=== PATIENT | female | born 1995 | race African-American/Black ===

== ENCOUNTER 2016-03-26 20:12 | Emergency (ER) | payer OTHER ==
[2016-03-26 20:20] VITALS: BP 130/76
[2016-03-26] MEDS ORDERED: Ondansetron INJ* 2 MG/ML VIAL IV ONE (20:42)
[2016-03-26] MEDS ORDERED: NS 0.9% 1000 ML* 1,000 ML IV ONE (20:42)
[2016-03-26 21:03] LABS: Urine Bilirubin Negative (Negative); Urine Glucose Negative (Negative); Urine Nitrite Negative (Negative)
[2016-03-26 21:14] LABS: Hematocrit 38 % (35-47); Hemoglobin 12.9 g/dl (12.0-16.0); Mean Corpuscular HGB Conc 34 g/dl (31-36); Mean Corpuscular Hemoglobin 30 pg (27-31); Mean Corpuscular Volume 89 fL (80-97); Mean Platelet Volume 7 um3 (7.4-10.4); Red Blood Count 4.27 10^6/ul (4.0-5.4); Red Cell Distribution Width 12 % (10.5-15); White Blood Count 10.3 10^3/ul (3.5-10.8)
[2016-03-26 21:37] LABS: ALT 20 U/L (7-52); AST 16 U/L (13-39); Albumin 4.1 g/dL (3.2-5.2); Alkaline Phosphatase 80 U/L (34-104); Anion Gap 5 mmol/L (2-11); BUN/Creatinine Ratio 15.1 (8-20); Blood Urea Nitrogen 13 mg/dL (6-24); CO2 Carbon Dioxide 27 mmol/L (22-32); Calcium 9.4 mg/dL (8.6-10.3); Chloride 104 mmol/L (101-111); EGFR African American 109.3 (>60); Globulin 2.8 g/dL (2-4); Glucose 104 mg/dL (70-100); Lipase 13 U/L (11.0-82.0); Potassium 3.8 mmol/L (3.5-5.0); Sodium 136 mmol/L (133-145); Total Protein 6.9 g/dL (6.4-8.9)
[2016-03-26] MEDS ORDERED: Iohexol 300* (CONTRAST) 10 ML SDV IV ONE (21:43)
--- NOTE | 2016-03-26 22:32 | ED ---
Abdominal Pain/Female - HPI Summary HPI Summary: 20 F w/ no PMH presents with increased pain in inguinal area today. She was seen yesterday and diagnosed with a hernia. She noticed a bulge in her inguinal area three days ago. She states she has a small BM today. She admits to nausea and vomited once. She denies any fevers. She denies any vaginal discharge, dysuria, or hematuria. She states her appetite has decreased due to nausea. She states she avoided lifting items >5lb today. She took a ibuprofen for her pain this morning. - History of Current Complaint Chief Complaint: EDAbdPain Stated Complaint: ABD PAIN,NAUSEA,WEAKNESS Time Seen by Provider: 03/26/16 20:42 Hx Last Menstrual Period: 05/04/15 Pain Intensity: 10 Allergies/Adverse Reactions: Allergies Allergy/AdvReac Type Severity Reaction Status Date / Time No Known Allergies Allergy Verified 03/25/16 18:32 PMH/Surg Hx/FS Hx/Imm Hx Endocrine/Hematology History: Denies: Hx Diabetes, Hx Thyroid Disease Cardiovascular History: Denies: Hx Hypertension Respiratory History: Denies: Hx Asthma, Hx Chronic Obstructive Pulmonary Disease (COPD) GI History: Denies: Hx Ulcer History: Denies: Hx Dialysis, Hx Renal Disease - Immunization History Date of Tetanus Vaccine: UTD Date of Influenza Vaccine: NONE Infectious Disease History: No Infectious Disease History: Denies: Hx Clostridium Difficile, Hx Hepatitis, Hx Human Immunodeficiency Virus (HIV), Hx of Known/Suspected MRSA, Hx Shingles, Hx Tuberculosis, Hx Known/ Suspected VRE, Hx Known/Suspected VRSA, History Other Infectious Disease, Traveled Outside the [place] in Last 30 Days - Family History Known Family History: Positive: Hypertension, Diabetes Family History: NON CONTRIBUTORY - Social History Alcohol Use: None Substance Use Type: Reports: None Smoking Status (MU): Heavy Every Day Tobacco Smoker Amount Used/How Often: 1/2 PPD Review of Systems Negative: Fever Negative: Chest Pain Negative: Shortness Of Breath Positive: Abdominal Pain - left inguinal area, Vomiting, Nausea. Negative: Diarrhea Negative: dysuria, frequency All Other Systems Reviewed And Are Negative: Yes Physical Exam Triage Information Reviewed: Yes Vital Signs On Initial Exam: Initial Vitals Temp Pulse Resp BP Pulse Ox 97.7 F 102 18 130/76 100 03/26/16 20:17 03/26/16 20:17 03/26/16 20:17 03/26/16 20:17 03/26/16 20:17 Vital Signs Reviewed: Yes Appearance: Positive: Well-Appearing Skin: Positive: Warm, Dry Head/Face: Positive: Normal Head/Face Inspection Eyes: Positive: Normal, Conjunctiva Clear ENT: Positive: Normal ENT inspection, Pharynx normal, TMs normal Respiratory/Lung Sounds: Positive: Clear to Auscultation, Breath Sounds Present Cardiovascular: Positive: Normal, RRR Abdomen Description: Positive: Soft, Other: - no hernia felt when patient laying flat, mild diffuse abdominal tenderness, Bowel Sounds: Positive: Present - [place] Coma Scale Coma Scale Total: 15 Diagnostics - Vital Signs Vital Signs Temp Pulse Resp BP Pulse Ox 03/26/16 20:17 97.7 F 102 18 130/76 100 - Laboratory Lab Results: Lab Results 03/26/16 03/26/16 03/26/16 Range/Units 20:55 21:00 21:00 WBC 10.3 (3.5-10.8) 10^3/ul RBC 4.27 (4.0-5.4) 10^6/ul Hgb 12.9 (12.0-16.0) g/dl Hct 38 (35-47) % MCV 89 (80-97) fL MCH 30 (27-31) pg MCHC 34 (31-36) g/dl RDW 12 (10.5-15) % Plt Count 327 (150-450) 10^3/ul MPV 7 L (7.4-10.4) um3 Neut % (Auto) 70.6 (38-83) % Lymph % (Auto) 22.5 L (25-47) % [place] % (Auto) 4.5 (1-9) % Eos % (Auto) 2.1 (0-6) % Baso % (Auto) 0.3 (0-2) % Absolute Neuts (auto) 7.2 (1.5-7.7) 10^3/ul Absolute Lymphs (auto) 2.3 (1.0-4.8) 10^3/ul Absolute Monos (auto) 0.5 (0-0.8) 10^3/ul Absolute Eos (auto) 0.2 (0-0.6) 10^3/ul Absolute Basos (auto) 0 (0-0.2) 10^3/ul Absolute Nucleated RBC 0 10^3/ul Nucleated RBC % 0 Sodium 136 (133-145) mmol/L Potassium 3.8 (3.5-5.0) mmol/L Chloride 104 (101-111) mmol/L Carbon Dioxide 27 (22-32) mmol/L Anion Gap 5 (2-11) mmol/L BUN 13 (6-24) mg/dL Creatinine 0.86 (0.51-0.95) mg/dL Est GFR ( Amer) 109.3 (>60) Est GFR (Non-Af Amer) 85.0 (>60) BUN/Creatinine Ratio 15.1 (8-20) Glucose 104 H (70-100) mg/dL Calcium 9.4 (8.6-10.3) mg/dL Total Bilirubin 0.20 (0.2-1.0) mg/dL AST 16 (13-39) U/L ALT 20 (7-52) U/L Alkaline Phosphatase 80 (34-104) U/L C-React Prot High Sens 10.28 mg/L Total Protein 6.9 (6.4-8.9) g/dL Albumin 4.1 (3.2-5.2) g/dL Globulin 2.8 (2-4) g/dL Albumin/Globulin Ratio 1.5 (1-3) Lipase 13 (11.0-82.0) U/L Beta HCG, Quant < 0.60 mIU/mL Urine Color Yellow Urine Appearance Clear Urine pH 6.0 (5-9) Ur Specific [place] 1.019 (1.010-1.030) Urine Protein Negative (Negative) Urine Ketones Negative (Negative) Urine Blood Negative (Negative) Urine Nitrate Negative (Negative) Urine Bilirubin Negative (Negative) Urine Urobilinogen Negative (Negative) Ur Leukocyte Esterase Negative (Negative) Urine Glucose Negative (Negative) Result Diagrams: 03/26/16 21:00 03/26/16 21:00 Lab Statement: Any lab studies that have been ordered have been reviewed, and results considered in the medical decision making process. - CT abdomen CT Interpretation: No Acute Changes - no inguinal region hernia, normal appendix , 2.3 cm corpus luteum left ovary CT Interpretation Completed By: Radiologist Re-Evaluation - Re-Evaluation First Eval Re-Evaluation Time: 22:30 Change: Worse Comment: would like pain medication Second Eval Re-Evaluation Time: 23:40 Change: Improved Comment: pain improved Third Eval Re-Evaluation Time: 00:36 Comment: patient c/o of nausea, gave another dose of zofran Abdominal Pain Fem Course/Dx - Course Course Of Treatment: 20 F presents with increased inguinal pain and nausea since today. She was seen yesterday by me and diagnosed with a hernia as felt potential hernia in inguinal area and at the time had no signs of incarceration. on exam generalized abdominal pain, no rebound tenderness, increased pain over LLQ, no hernia noted while patient laying down, due to increase in pain and nausea will do CT to r/o incarceration, labs improved since yesterday, CT read as no inguinal hernia, 2/3 corpus luteum left ovary, discussed results with patient that I was incorrected and does not have hernia instead has ovarian cyst, due to pelvic exam being done yesterday by me and being normal will d/c home, enouraged pt to establish care with obgyn to potential have repeating imaging of cyst in couple months, will give nausea medication for home and have follow up with primary in couple days, patient agrees with plan - Diagnoses Differential Diagnosis: Positive: Bowel Obstruction, Pancreatitis, Other - hernia, incarcerated hernia, strangulated hernia Provider Diagnoses: Left ovarian cyst Discharge - Discharge Plan Condition: Good Disposition: HOME Prescriptions: Ondansetron TAB* [Zofran Tab*] 4 mg PO Q6H PRN #20 tab PRN Reason: Nausea Patient Education Materials: Ovarian Cyst (ED) Referrals: Sophia SOSA,Lynette [Primary Care Provider] - Additional Instructions: Take zofran as needed every 6 hours for nausea Take Tylenol or ibuprofen for pain every 6 hours Establish care with OBGYN Follow up with primary in 5 days if no improvement Return to ED if develop any new or worsening symptoms
[2016-03-26] MEDS ORDERED: Ketorolac INJ* 30 MG/ML 1 ML VIAL IV PUSH ONE (22:34)
[2016-03-27] MEDS ORDERED: Ondansetron INJ* 2 MG/ML VIAL IV ONE (00:32)
--- NOTE | 2016-03-27 10:40 | RAD ---
CLINICAL HISTORY: Abdominal pain in patient with a left groin hernia COMPARISON: None TECHNIQUE: Contrast enhanced CT examination of the abdomen and pelvis from the lung bases through the initial tuberosities. The patient received 136 mL Omnipaque 300 intravenously prior to imaging.The patient received oral contrast as well prior to imaging. FINDINGS: VISUALIZED LUNG BASES: The visualized lung bases are grossly clear. There is no pleural effusion. ABDOMEN AND PELVIS: The liver, spleen, pancreas and adrenal glands are grossly normal in appearance. The gallbladder is normal. The kidneys are normal in appearance without focal mass, calcification or signs of hydronephrosis. Neural contrast has progressed as far as the base of the cecum. The small and large bowel are not distended. The patient's normal appendix is identified in the right lower quadrant (coronal image 47). There is no gross retroperitoneal lymphadenopathy. Best depicted on the coronal plane images there are an numerable mesenteric lymph nodes some exhibiting pathologic enlargement up to 1.3 cm in short access diameter (coronal image 48 and 41 for example). The pelvic viscera is normal in appearance for a woman of this age. The abdominal aorta and iliac arteries are normal in course and diameter. There is no large hernia, inguinal or otherwise, identified. There are no sinister bone lesions. IMPRESSION: 1. In the correct clinical setting CT findings could be compatible with mesenteric adenitis. 2. The remaining CT findings are otherwise normal and age-appropriate.
== END 2016-03-27 01:03 | disposition home or self-care (01) ==
LOC: ED 20:12
DX: R10.84 Generalized abdominal pain (principal); R11.2 Nausea with vomiting, unspecified; F17.210 Nicotine dependence, cigarettes, uncomplicated; N83.202 Unspecified ovarian cyst, left side
CPT/HCPCS: 36415; 74177; 80053; 81003; 83690; 84702; 85025; 86141; 96361; 96374; 96375; 99284; J1885; J2405; Q9967

== ENCOUNTER 2016-08-12 17:30 | Emergency (ER) | payer OTHER ==
[2016-08-12 17:40] VITALS: BP 121/62
[2016-08-12] MEDS ORDERED: Albuterol 2.5 MG/3 ML NEB.SOL* (0.083%) INH ONE (18:50)
[2016-08-12] MEDS ORDERED: Ketorolac INJ* 60 MG/2 ML VIAL IM ONE (18:50)
--- NOTE | 2016-08-12 19:37 | RAD ---
Indication: Chest pain. Dual energy PA views in inspiration and expiration as well as lateral views of the chest demonstrates no mediastinal shift. Heart is of normal size and configuration. Lung louie are clear. No pneumothorax is noted. IMPRESSION: No pneumothorax is noted. No active cardiopulmonary disease is noted.
[2016-08-12] MEDS ORDERED: Carisoprodol TAB* 350 MG PO ONE (20:30)
--- NOTE | 2016-10-04 09:42 | UC ---
Giancarlo Rojo Aidan, scribed for Sabina Acosta MD on 08/12/16 at 1924 . 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 The pain is aggravated by deep inhalation. Additionally , she has acute, constant, moderate right knee pain that resulted from her falling down 1 week ago. Pt denies any SOB, diaphoresis, nausea cough, fever, chills, constipation, diarrhea, rash, recent travel outside of the country, or Hx of hiatal hernia. Currently, she has a mild JONES. - History of Current Complaint Chief Complaint: UCChestPain Stated Complaint: KNEE INJURY,CHEST PAIN Time Seen by Provider: 08/12/16 17:57 Hx Obtained From: Patient Onset/Duration: Sudden Onset, Lasting Hours, Still Present Timing: Constant - since episode onset Initial Severity: Moderate Current Severity: Moderate Pain Intensity: 6 Chest Pain Location: Mid Sternal Character: Tightness Aggravating: Deep Breaths Alleviating: Nothing - unknown Associated Signs & Symptoms: Positive: Headaches. Negative: Negative - right knee pain - Risk Factors Pulmonary Embolism Risk Factors: Smoking Cardiac Risk Factors: Smoking TAD Risk Factors: Smoking AMI/ACS Risk Factors: Smoking - Allergy/Home Medications Allergies/Adverse Reactions: Allergies Allergy/AdvReac Type Severity Reaction Status Date / Time No Known Allergies Allergy Verified 08/12/16 17:41 Home Medications: Home Medications Citalopram TAB* [Celexa TAB*] 08/12/16 [History Confirmed 08/12/16] PMH/Surg Hx/FS Hx/Imm Hx Endocrine History Of: Denies: Diabetes, Thyroid Disease Cardiovascular History Of: Denies: Cardiac Disorders, Hypertension Respiratory History Of: Denies: COPD, Asthma GI/ History Of: Denies: Ulcer, Renal Disease - Surgical History Surgical History: None - Family History Known Family History: Positive: Hypertension, Diabetes Family History: NON CONTRIBUTORY - Social History Occupation: Employed Full-time Lives: Alone Alcohol Use: None Substance Use Type: None Smoking Status (MU): Heavy Every Day Tobacco Smoker Amount Used/How Often: 1/2 PPD Review of Systems Constitutional: Negative Skin: Negative Eyes: Negative ENT: Negative Respiratory: Negative Cardiovascular: Chest Pain Gastrointestinal: Negative Genitourinary: Negative Motor: Negative Neurovascular: Negative Musculoskeletal: Arthralgia - knee pain Neurological: Headache Psychological: Negative All Other Systems Reviewed And Are Negative: Yes Physical Exam Triage Information Reviewed: Yes Appearance: Well-Nourished Vital Signs: Initial Vital Signs Temp 97.4 F 08/12/16 17:36 Pulse 80 08/12/16 17:36 Resp 12 08/12/16 17:36 BP 121/62 08/12/16 17:36 Pulse Ox 100 08/12/16 17:36 Vital Signs Reviewed: Yes Eye Exam: Normal ENT Exam: Normal Respiratory Exam: Normal, Other - no dyspnea, no tachypnea Cardiovascular Exam: Normal Cardiovascular: Positive: RRR, No Murmur, Pulses Normal, Brisk Capillary Refill , Other: - anterior chest wall (along the entire mid-chest) tenderness to pressure, no epigastric tenderness, heart rate regular, good general skin color Abdominal Exam: Normal Abdomen Description: Positive: Nontender, No Organomegaly, Soft, Other: - no HSM , no CVAT. Negative: CVA Tenderness (R) - no CVAT tenderness, CVA Tenderness (L ) Bowel Sounds: Positive: Present Musculoskeletal Exam: Normal Musculoskeletal: Positive: Strength Intact Neurological Exam: Normal, Other - nonfocal, grossly intact Psychological Exam: Normal, Other - responds appropriately and easily to questions Diagnostics - Radiology CHEST X-RAY Xray Interpretation: No Acute Changes - IMPRESSION: No pneumothorax is noted. No active cardiopulmonary disease is noted. Radiology Interpretation Completed By: Radiologist - EKG Cardiac Rate: NL - 73 BPM Cardiac Rhythm: Sinus: Normal - WY = 155, QTC = 398 - Assessment/Plan Course Of Treatment: Blood pressure was 121/62 which is hypertensive. The patient should contact her primary care provider within 4 weeks to have her blood pressure evaluated. - Clinical Impression Provider Diagnoses: costochondritis. pleuritis Discharge - Discharge Plan Condition: Stable Disposition: HOME Prescriptions: Albuterol HFA INHALER* [Ventolin HFA Inhaler*] 1 - 2 puff INH Q4H PRN #1 mdi PRN Reason: Wheezing Carisoprodol TAB* [Soma TAB*] 350 mg PO TID PRN #15 tab MDD 3 PRN Reason: Spasms Naproxen TAB* [Naprosyn 250 mg TAB*] 500 mg PO Q12HR PRN #20 tab PRN Reason: Pain Patient Education Materials: Pleurisy (ED), Costochondritis (ED) Forms: *Work Release Referrals: Saman San MD [Primary Care Provider] - Additional Instructions: Follow up with Dr. San - call tomorrow for appointment early this week. Meanwhile, go to the Emergency Department for worse or new problems. The documentation as recorded by the Giancarlo bee Aidan accurately reflects the service I personally performed and the decisions made by me, Sabina Acosta MD.
== END 2016-08-12 20:43 | disposition home or self-care (01) ==
LOC: UCEAST 17:30
DX: M94.0 Chondrocostal junction syndrome [Tietze] (principal); R09.1 Pleurisy; R51 Headache; M25.561 Pain in right knee; Z32.02 Encounter for pregnancy test, result negative; F17.210 Nicotine dependence, cigarettes, uncomplicated
CPT/HCPCS: 71020; 81003; 84702; 93005; 99212; A9270-GY; G0463; J1885

== ENCOUNTER 2017-01-08 09:48 | Emergency (ER) | payer OTHER | END 2017-01-08 12:29 | disposition left against medical advice (07) | LOC: UCEAST 09:48 | DX: Z53.21 Procedure and treatment not carried out due to patient leaving prior to being seen by health care provider (principal) ==

== ENCOUNTER 2017-05-19 14:23 | Emergency (ER) | payer SELFPAY ==
--- NOTE | 2017-05-19 16:31 | ED ---
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 States she twisted. Denies any other complaints. No numbness/tingling. No PMHx. Is currently 9 weeks . Took 100mg of tylenol [employer] which did help some. States pain is sharp and shooting and worsens with changing positions and movement. Worse on palpation. No obvious deformity or bruising. No previous injuries. No bladder/bowel incontinence, saddle anesthesia or weakness. - History of Current Complaint Chief Complaint: EDBackInjuryPain Stated Complaint: BACK PAIN Time Seen by Provider: 05/19/17 15:27 Hx Obtained From: Patient Hx Last Menstrual Period: now Onset/Duration: Sudden Onset Onset/Duration: Started Hours Ago, Traumatic Timing: Constant Back Pain Location: Is Discrete @ - left low back Severity Initially: Moderate Severity Currently: Moderate Pain Intensity: 7 Pain Scale Used: 0-10 Numeric Character: Sharp, Aching, Throbbing Aggravating Symptom(s): Movement, Lifting, Bending Alleviating Symptom(s): Rest, Position Associated Signs And Symptoms: Positive: Negative. Negative: Weakness, Numbness , Tingling, Abdominal Pain, Bladder Incontinence, Bowel Incontinence, Weight Loss, Pain with Weight Bearing - Risk Factors AAA Risk Factors: Negative TAD Risk Factors: Negative Cauda Equina Risk Factors: Negative Epidural Abscess Risk Factors: Negative - Allergies/Home Medications Allergies/Adverse Reactions: Allergies Allergy/AdvReac Type Severity Reaction Status Date / Time No Known Allergies Allergy Verified 08/12/16 17:41 PMH/Surg Hx/FS Hx/Imm Hx Endocrine/Hematology History: Denies: Hx Diabetes, Hx Thyroid Disease Cardiovascular History: Denies: Hx Hypertension Respiratory History: Denies: Hx Asthma, Hx Chronic Obstructive Pulmonary Disease (COPD) GI History: Denies: Hx Ulcer History: Denies: Hx Dialysis, Hx Renal Disease - Surgical History Surgery Procedure, Year, and Place: n/a - Immunization History Date of Tetanus Vaccine: UTD Date of Influenza Vaccine: NONE Immunizations Up to Date: Yes Infectious Disease History: No Infectious Disease History: Reports: Hx of Known/Suspected MRSA Denies: Hx Clostridium Difficile, Hx Hepatitis, Hx Human Immunodeficiency Virus (HIV), Hx Shingles, Hx Tuberculosis, Hx Known/Suspected VRE, Hx Known/ Suspected VRSA, History Other Infectious Disease, Traveled Outside the [place] in Last 30 Days - Family History Known Family History: Positive: Hypertension, Diabetes Family History: NON CONTRIBUTORY - Social History Alcohol Use: None Substance Use Type: Reports: None Hx Tobacco Use: Yes Smoking Status (MU): Light Every Day Tobacco Smoker Amount Used/How Often: 1/2 PPD Review of Systems Constitutional: Negative Cardiovascular: Negative Respiratory: Negative Positive: Arthralgia, Myalgia - back pain Skin: Negative Neurological: Negative All Other Systems Reviewed And Are Negative: Yes Physical Exam Triage Information Reviewed: Yes Vital Signs On Initial Exam: Initial Vitals Temp Pulse Resp BP Pulse Ox 98.3 F 92 18 116/54 96 05/19/17 14:31 05/19/17 14:31 05/19/17 14:31 05/19/17 14:31 05/19/17 14:31 Vital Signs Reviewed: Yes Appearance: Positive: Well-Appearing, Well-Nourished, Pain Distress - mild to moderate when changing positions Skin: Positive: Warm, Skin Color Reflects Adequate Perfusion, Dry. Negative: Cold, Numb, Cyanosis @, Pale, Erythema @ Head/Face: Positive: Normal Head/Face Inspection Neck: Positive: Supple, Nontender Respiratory/Lung Sounds: Positive: Clear to Auscultation, Breath Sounds Present. Negative: Rales, Rhonchi, Wheezes Cardiovascular: Positive: Normal, RRR, Pulses are Symmetrical in both Upper and Lower Extremities. Negative: Murmur, Rub Abdomen Description: Positive: Nontender, Soft Bowel Sounds: Positive: Present Musculoskeletal: Positive: Normal, Strength/ROM Intact - with pain when flexing/ extending low back, Pain @ - on palpation of low back L3-S1, more on left paraspinal muscle side, Other - no crepitus step off or obvious deformity. no edema or ecchymosis. Negative: Limited @, Interruption @, Abnormal @, Edema Left Neurological: Positive: Normal, Sensory/Motor Intact, Alert, Oriented to Person Place, Time, NV Bundle Intact Distally, Normal Gait Diagnostics - Vital Signs Vital Signs Temp Pulse Resp BP Pulse Ox 05/19/17 14:31 98.3 F 92 18 116/54 96 - Laboratory Lab Statement: Any lab studies that have been ordered have been reviewed, and results considered in the medical decision making process. Back Pain Course/Dx - Course Course Of Treatment: continue tylenol and heating pad. appears to be MSK related. no imaging required at this time. marvin is also 9 weeks . rest and avoid lifting. recommended physical therapy once symptoms improve. follow up pcp. aware of worsening signs and symptoms to watch out for. - Diagnoses Differential Diagnosis/HQI/PQRI: Positive: Herniated Disc, Strain, Sprain Provider Diagnoses: Lumbosacral strain, Low back pain Discharge - Discharge Plan Condition: Stable Disposition: HOME Patient Education Materials: Low Back Strain (ED) Forms: *Gen. Provider Communication Referrals: Saman San MD [Primary Care Provider] - Additional Instructions: Continue tylenol as needed for pain. Avoid lifting and over use. Let back rest. Apply heating pad. Follow up with PCP. Any new or worsening symptoms please seek medical attention.
[2017-05-19 16:53] VITALS: BP 104/61
== END 2017-05-19 16:52 | disposition home or self-care (01) ==
LOC: ED 14:23
DX: M54.5 Low back pain (principal); O26.891 Other specified pregnancy related conditions, first trimester; Z3A.09 9 weeks gestation of pregnancy; S39.012A Strain of muscle, fascia and tendon of lower back, initial encounter; X58.XXXA Exposure to other specified factors, initial encounter; Y92.9 Unspecified place or not applicable; Y99.0 Civilian activity done for income or pay
CPT/HCPCS: 99281

== ENCOUNTER 2017-05-24 13:29 | Emergency (ER) | payer BC ==
[2017-05-24] MEDS ORDERED: Acetaminophen TAB* 325 MG PO ONE (14:19)
[2017-05-24] MEDS ORDERED: Ondansetron INJ* 2 MG/ML VIAL IV ONE (14:21)
[2017-05-24] MEDS ORDERED: Oseltamivir CAP* 75 MG CAP PO ONE (14:22)
--- NOTE | 2017-05-24 14:27 | UC ---
FLU HPI - HPI Summary HPI Summary: 21 year old female @10 weeks with no significant pmhx here with fever, cough and vomiting. Patient reports symptoms started 3-4 days ago. Reports NBNB vomiting with no diarrhea. Cough is productive and reports feeling out of breath with the coughing fits. - History of Current Complaint Chief Complaint: UCGeneralIllness Stated Complaint: COUGH VOMITING Time Seen by Provider: 05/24/17 13:55 Hx Obtained From: Patient Hx Last Menstrual Period: now Onset/Duration: Sudden Onset Severity Currently: Mild Severity Initially: Mild Pain Intensity: 8 Associated Signs & Symptoms: Positive: Fever Related Hx: Possible Flu/Infectious Exposure - Allergy/Home Medications Allergies/Adverse Reactions: Allergies Allergy/AdvReac Type Severity Reaction Status Date / Time No Known Allergies Allergy Verified 05/24/17 13:37 Home Medications: Home Medications D-Methorphan/PE/Acetaminophen [Daytime Cold Multi-Symp Gelcap] 1 tab PO ONCE [History Confirmed 05/24/17] PMH/Surg Hx/FS Hx/Imm Hx Previously Healthy: No - Surgical History Surgical History: None Surgery Procedure, Year, and Place: n/a - Family History Known Family History: Positive: Hypertension, Diabetes Family History: NON CONTRIBUTORY - Social History Alcohol Use: None Substance Use Type: None Smoking Status (MU): Light Every Day Tobacco Smoker Amount Used/How Often: 4 cigs/ day Review of Systems Constitutional: Fever, Chills Skin: Negative Eyes: Negative Respiratory: Cough Cardiovascular: Negative Gastrointestinal: Negative Genitourinary: Negative Motor: Negative All Other Systems Reviewed And Are Negative: Yes Physical Exam Triage Information Reviewed: Yes Appearance: Well-Appearing, No Pain Distress, Well-Nourished Vital Signs: Initial Vital Signs Temp 37.4 C 05/24/17 13:40 Pulse 118 05/24/17 13:40 Resp 18 05/24/17 13:40 BP 122/64 05/24/17 13:40 Pulse Ox 99 05/24/17 13:40 Eye Exam: Normal ENT: Positive: Other - Dry mucosal membrane Neck exam: Normal Neck: Positive: Supple, Nontender, No Lymphadenopathy Respiratory: Positive: Chest non-tender, Lungs clear, Normal breath sounds, No respiratory distress, No accessory muscle use Cardiovascular Exam: Other - tachy no m/g/r Abdomen Description: Positive: Nontender, No Organomegaly, Soft. Negative: CVA Tenderness (R), CVA Tenderness (L) Musculoskeletal Exam: Normal Neurological Exam: Normal Psychological Exam: Normal Skin Exam: Normal Re-Evaluation - Re-Evaluation First Eval Re-Evaluation Time: 03:45 Change: Improved Flu Course/Dx - Course Course Of Treatment: Patient here tachycardic and hypovolemic. Will give IVF, tylenol, tamiflu and reassess. - Differential Dx/Diagnosis Differential Diagnosis/HQI/PQRI: Bronchitis, Influenza, Upper Respiratory Infection Provider Diagnoses: Influenza. Patient is first term . Appears well. No concern for serious complications now but will give patient instructions. Since patient is not third term, she is not at an increased risk at this point. Discharge - Discharge Plan Condition: Good Disposition: HOME Prescriptions: Oseltamivir SUSP 75 MG dose* [Tamiflu SUSP 75 MG dose*] 75 mg PO BID 5 Days #10 oral.syrin Patient Education Materials: Oseltamivir (By mouth), Influenza (ED) Print Language: SPANISH Forms: *Work Release Referrals: No Primary Care Phys,NOPCP [Primary Care Provider] -
[2017-05-24] MEDS ORDERED: NS 0.9% 1000 ML* 1,000 ML IV ONE (14:30)
[2017-05-24] MEDS ORDERED: NS 0.9% 100 ML* 1,000 ML IV SCH (15:00)
[2017-05-24 15:44] VITALS: BP 116/59
== END 2017-05-24 15:59 | disposition home or self-care (01) ==
LOC: UCEAST 13:29
DX: O99.511 Diseases of the respiratory system complicating pregnancy, first trimester (principal); J10.1 Influenza due to other identified influenza virus with other respiratory manifestations; O99.331 Smoking (tobacco) complicating pregnancy, first trimester; Z3A.10 10 weeks gestation of pregnancy
CPT/HCPCS: 87502; 96360; 96374; 99212; A9270-GY; G0463; J2405